=== PATIENT | male | born 2000 | race American Indian/Alaskan Native ===

== ENCOUNTER 2023-06-27 15:24 | Emergency (ER) | payer MEDICAID, OTHER ==
[2023-06-27] MEDS ORDERED: Folic Acid 1 MG Tab PO ONE (16:04)
[2023-06-27] MEDS ORDERED: Multivitamins with Iron/Calcium/Folic Acid/Minerals Tab PO ONE (16:04)
[2023-06-27] MEDS ORDERED: Thiamine 100 MG Tab PO ONE (16:04)
[2023-06-27] MEDS ORDERED: Atenolol 25 MG Tab PO ONE (16:06)
[2023-06-27] MEDS ORDERED: Acetaminophen 325 MG Tab PO ONE (16:07)
[2023-06-27 16:44] VITALS: BP 131/90; PULSE 98
== END 2023-06-27 16:50 | disposition home or self-care (01) ==
LOC: JP.ED 15:24
DX: F10.10 Alcohol abuse, uncomplicated (principal); R42 Dizziness and giddiness; R03.0 Elevated blood-pressure reading, without diagnosis of hypertension; F17.210 Nicotine dependence, cigarettes, uncomplicated
CPT/HCPCS: 93005; 99284; A9270

== ENCOUNTER 2023-07-01 22:37 | Emergency (ER) | payer MEDICAID ==
[2023-07-01 22:43] VITALS: BP 142/96; PULSE 84
[2023-07-01] MEDS ORDERED: Sodium Chloride 0.9% 50 ML IV ONE (22:48)
[2023-07-01] MEDS ORDERED: Iopamidol 612 MG/ML 100 ML Bottle IV ONE (22:48)
[2023-07-01] MEDS ORDERED: Sodium Chloride 0.9% 10 ML Syringe FLUSH ONE (22:48)
[2023-07-01 23:02] LABS: BASOPHILS ABSOLUTE AUTO 0.12 K/uL (0.00-0.10); BASOPHILS PERCENT AUTO 1.1 % (0.1-1.3); EOSINOPHILS ABSOLUTE AUTO 0.44 K/uL (0.00-0.40); EOSINOPHILS PERCENT AUTO 4.1 % (0.0-5.4); HEMATOCRIT 42.8 % (38.4-49.7); HEMOGLOBIN 15.5 g/dL (12.9-16.9); IMMATURE GRAN ABSOLUTE AUTO 0.08 K/uL (0.00-0.23); IMMATURE GRAN PERCENT AUTO 0.8 % (0.0-0.7); LYMPHOCYTES ABSOLUTE AUTO 3.03 K/uL (0.8-3.3); LYMPHOCYTES PERCENT AUTO 28.4 % (11.4-47.7); MEAN CORPUSCULAR HEMOGLOBIN 32.2 pg (31.6-35.5); MEAN CORPUSCULAR HGB CONC 36.2 g/dL (31.6-35.5); MEAN CORPUSCULAR VOLUME 88.8 fL (81.4-99.0); MONOCYTES PERCENT AUTO 7.5 % (3.3-12.6); NEUTROPHILS ABSOLUTE AUTO 6.19 K/uL (1.0-7.6); NEUTROPHILS PERCENT AUTO 58.1 % (40.0-78.1); PLATELET COUNT,PLT 327 K/uL (130-375); RED BLOOD CELL COUNT 4.82 M/uL (4.14-5.76); WHITE BLOOD CELL COUNT,WBC 10.7 K/uL (3.2-11.0)
[2023-07-01 23:20] LABS: APPEARANCE,URINE CLEAR (CLEAR); BILIRUBIN,URINE NEGATIVE (NEGATIVE); COLOR,URINE YELLOW (YELLOW); GLUCOSE,URINE NEGATIVE (NEGATIVE); KETONES,URINE NEGATIVE (NEGATIVE); LEUKOCYTE ESTERASE,URINE NEGATIVE (NEGATIVE); NITRITE,URINE NEGATIVE (NEGATIVE); OCCULT BLOOD,URINE NEGATIVE (NEGATIVE); PROTEIN,URINE NEGATIVE (NEGATIVE); UROBILINOGEN,URINE 0.2 EU/dL (0.2-1.0)
[2023-07-01 23:24] LABS: A/G RATIO 1.2 (1.2-2.2); ALANINE AMINOTRANSFERASE,ALT 32 U/L (12-78); ALKALINE PHOSPHATASE 112 U/L (46-116); ASPARTATE AMNIOTRANSFERASE,AST 21 U/L (15-37); BILIRUBIN TOTAL 0.4 mg/dL (0.2-1.0); BLOOD UREA NITROGEN,BUN 6 mg/dL (7-18); CALCIUM 8.6 mg/dL (8.5-10.1); CARBON DIOXIDE,CO2 25 mmol/L (21-32); CHLORIDE,CL 102 mmol/L (100-108); CREATININE 0.8 mg/dL (0.8-1.3); EST CRCL DRUG DOSING (CG) 152.95 mL/min; ESTIMATED GFR 128 mL/min (>60); GLUCOSE RANDOM 107 mg/dL (74-106); POTASSIUM,K 3.5 mmol/L (3.6-5.2); PROTEIN TOTAL,TP 7.4 g/dL (6.4-8.2); SODIUM,NA 137 mmol/L (140-148)
[2023-07-01 23:25] LABS: ANION GAP 13.5 mmol/L (5.0-14.0)
[2023-07-01 23:28] LABS: AMORPHOUS SEDIMENT,URINE NOT SEEN; BACTERIA,URINE RARE; EPITHELIAL CELLS,URINE RARE; MUCUS,URINE NOT SEEN; RBC,URINE 0-5 (0-5); WBC,URINE 0-5 (0-5)
[2023-07-01] MEDS ORDERED: Aluminum Hydroxide/Magnesium Hydroxide/Simethicone Susp 30 ML Cup PO STA (23:57)
== END 2023-07-02 00:12 | disposition home or self-care (01) ==
LOC: JP.ED 22:37
DX: R10.13 Epigastric pain (principal); R14.3 Flatulence; F17.210 Nicotine dependence, cigarettes, uncomplicated
CPT/HCPCS: 36415; 74177; 80053; 81001; 83605; 83690; 85025; 99285; A9270; J3490; Q9967

== ENCOUNTER 2023-07-15 19:41 | Emergency (ER) | payer SELFPAY ==
[2023-07-15 19:56] LABS: BASOPHILS ABSOLUTE AUTO 0.05 K/uL (0.00-0.10); BASOPHILS PERCENT AUTO 0.6 % (0.1-1.3); EOSINOPHILS ABSOLUTE AUTO 0.15 K/uL (0.00-0.40); EOSINOPHILS PERCENT AUTO 1.9 % (0.0-5.4); HEMOGLOBIN 13.9 g/dL (12.9-16.9); IMMATURE GRAN ABSOLUTE AUTO 0.15 K/uL (0.00-0.23); IMMATURE GRAN PERCENT AUTO 1.9 % (0.0-0.7); LYMPHOCYTES PERCENT AUTO 19.3 % (11.4-47.7); MEAN CORPUSCULAR HGB CONC 34.8 g/dL (31.6-35.5); MONOCYTES ABSOLUTE AUTO 0.43 K/uL (0.20-0.90); MONOCYTES PERCENT AUTO 5.5 % (3.3-12.6); NEUTROPHILS ABSOLUTE AUTO 5.48 K/uL (1.0-7.6); NEUTROPHILS PERCENT AUTO 70.8 % (40.0-78.1); PLATELET COUNT,PLT 259 K/uL (130-375); RED BLOOD CELL COUNT 4.35 M/uL (4.14-5.76); WHITE BLOOD CELL COUNT,WBC 7.8 K/uL (3.2-11.0)
[2023-07-15 20:24] LABS: A/G RATIO 1.1 (1.2-2.2); ALANINE AMINOTRANSFERASE,ALT 143 U/L (12-78); ALBUMIN 3.5 g/dL (3.4-5.0); ALKALINE PHOSPHATASE 126 U/L (46-116); ANION GAP 11.4 mmol/L (5.0-14.0); ASPARTATE AMNIOTRANSFERASE,AST 42 U/L (15-37); BILIRUBIN TOTAL 0.2 mg/dL (0.2-1.0); BLOOD UREA NITROGEN,BUN 12 mg/dL (7-18); CALCIUM 7.9 mg/dL (8.5-10.1); CARBON DIOXIDE,CO2 27 mmol/L (21-32); CHLORIDE,CL 106 mmol/L (100-108); CREATININE 0.8 mg/dL (0.8-1.3); EST CRCL DRUG DOSING (CG) 152.95 mL/min; ESTIMATED GFR 128 mL/min (>60); GLUCOSE RANDOM 106 mg/dL (74-106); POTASSIUM,K 3.6 mmol/L (3.6-5.2); PROTEIN TOTAL,TP 6.8 g/dL (6.4-8.2); SODIUM,NA 144 mmol/L (140-148)
[2023-07-16 07:20] LABS: APPEARANCE,URINE CLEAR (CLEAR); BILIRUBIN,URINE NEGATIVE (NEGATIVE); COLOR,URINE YELLOW (YELLOW); GLUCOSE,URINE NEGATIVE (NEGATIVE); KETONES,URINE NEGATIVE (NEGATIVE); LEUKOCYTE ESTERASE,URINE NEGATIVE (NEGATIVE); NITRITE,URINE NEGATIVE (NEGATIVE); OCCULT BLOOD,URINE NEGATIVE (NEGATIVE); PROTEIN,URINE NEGATIVE (NEGATIVE); UROBILINOGEN,URINE 0.2 EU/dL (0.2-1.0)
[2023-07-16 07:25] LABS: AMORPHOUS SEDIMENT,URINE NOT SEEN; BACTERIA,URINE RARE; EPITHELIAL CELLS,URINE NOT SEEN; MUCUS,URINE NOT SEEN; RBC,URINE 0-5 (0-5); WBC,URINE 0-5 (0-5)
[2023-07-16 07:26] LABS: AMPHETAMINES SCREEN, URINE NEGATIVE (NEGATIVE); BARBITURATE SCREEN,URINE NEGATIVE (NEGATIVE); BENZODIAZEPINES SCREEN,URINE NEGATIVE (NEGATIVE); METHADONE SCREEN, URINE NEGATIVE (NEGATIVE); METHAMPHETAMINES SCREEN, URINE NEGATIVE (NEGATIVE); OXYCODONE SCREEN,URINE NEGATIVE (NEGATIVE); PROPOXYPHENE SCREEN,URINE NEGATIVE (NEGATIVE); THC SCREEN,URINE 50 NG/ML PRESUMPTIVE POSITIVE (NEGATIVE)
[2023-07-16 08:16] VITALS: BP 126/78; PULSE 87
== END 2023-07-16 09:09 | disposition home or self-care (01) ==
LOC: JP.ED 19:41
DX: F12.90 Cannabis use, unspecified, uncomplicated (principal); F10.929 Alcohol use, unspecified with intoxication, unspecified; F10.959 Alcohol use, unspecified with alcohol-induced psychotic disorder, unspecified
CPT/HCPCS: 36415; 80053; 80305-QW; 80307; 81001; 85025; 99284